=== PATIENT | female | born 1935 | race Caucasian/White ===

== ENCOUNTER 2020-08-05 10:27 | Inpatient (IN) | payer MEDICARE ==
[~2020-08-05] VITALS: Ht 165.1 cm; Wt 39.8 kg
[2020-08-05 11:11] LABS: BASOPHILS % (AUTO) 0.2 % (0.0-5.0); CREATININE 0.8 mg/dL (0.5-1.5); HEMATOCRIT 40.8 % (36-48); LYMPHOCYTES % (AUTO) 10.7 % (21.0-51.0); MEAN CORPUSCULAR HEMOGLOBIN 28.5 pg (27.0-33.0); MEAN CORPUSCULAR HGB CONC 32.8 g/dL (32.0-36.0); MEAN CORPUSCULAR VOLUME 86.8 fL (79-99); MONOCYTES % (AUTO) 12.3 % (3.0-13.0); NEUTROPHILS % (AUTO) 76.2 % (40.0-77.0); PLATELET COUNT (AUTO) 348 K/uL (130-400); RED CELL DISTRIBUTION WIDTH 13.5 % (11.0-15.5); WHITE BLOOD COUNT (AUTO) 10.2 K/uL (4.8-10.8)
[2020-08-05] MEDS ORDERED: FENTANYL CITRATE PF 50 MCG/1 ML 2ML VIAL ONE (11:17)
[2020-08-05] MEDS ORDERED: ONDANSETRON HCL 4 MG/2 ML VIAL ONE (11:17)
[2020-08-05 11:34] LABS: INR 0.92 (0.85-1.15); PARTIAL THROMBOPLASTIN TIME 26.4 SEC (26.3-35.5)
[2020-08-05] MEDS: SODIUM CHLORIDE 0.9% 1000ML 1,000 ML IV SCH (17:00)
[2020-08-05] MEDS ORDERED: ONDANSETRON HCL 4 MG/2 ML VIAL IV PRN (17:00)
[2020-08-05] MEDS ORDERED: ACETAMINOPHEN 325 MG TAB PO PRN (17:00)
[2020-08-05] MEDS ORDERED: FAMOTIDINE/PF 20 MG/2 ML VIAL IV ONE (19:52)
[2020-08-05 20:45] VITALS: BP 153/92
[2020-08-05] MEDS: FAMOTIDINE/PF 20 MG/2 ML VIAL IV SCH (21:00)
[2020-08-06] VITALS: BP 158/86
--- NOTE | 2020-08-06 00:50 | NUR ---
PT FELL HEARD PT SCREAM. FOUND PATIENT ON FLOOR. PT CONFUSED, STATING CONFUSED SENTENCES. ASSISTED PT BACK TO BED. CALLED ESTELITA CLOUD PHYSICIST COAL CUTTER. ORDERS GIVEN. WILL PLACE PT CLOSER TO NURSES STATION. 1:1 WILL BE INITIATED. BED ALARM PLACED
[2020-08-06] MEDS ORDERED: ALPRAZOLAM 0.25 MG TABLET PO PRN (01:15)
[2020-08-06] MEDS ORDERED: HYDRALAZINE HCL 20 MG/ML VIAL IV PRN (01:15)
[2020-08-06 03:33] VITALS: BP 144/89
[2020-08-06 06:04] LABS: BASOPHILS % (AUTO) 0.2 % (0.0-5.0); EOSINOPHILS % (AUTO) 0.1 % (0.0-8.0); HEMATOCRIT 40.2 % (36-48); LYMPHOCYTES % (AUTO) 13.2 % (21.0-51.0); MEAN CORPUSCULAR HEMOGLOBIN 28.5 pg (27.0-33.0); MEAN CORPUSCULAR HGB CONC 32.6 g/dL (32.0-36.0); MEAN CORPUSCULAR VOLUME 87.4 fL (79-99); MONOCYTES % (AUTO) 10.7 % (3.0-13.0); NEUTROPHILS % (AUTO) 75.3 % (40.0-77.0); PLATELET COUNT (AUTO) 360 K/uL (130-400); RED CELL DISTRIBUTION WIDTH 13.7 % (11.0-15.5); WHITE BLOOD COUNT (AUTO) 12.7 K/uL (4.8-10.8)
[2020-08-06 06:36] LABS: ALBUMIN 3.5 g/dL (3.5-5.0); BILIRUBIN,TOTAL 0.9 mg/dL (0.2-1.0); CREATININE 0.8 mg/dL (0.5-1.5); POTASSIUM 3.6 mmol/L (3.5-5.1); TOTAL PROTEIN, SERUM 7.2 g/dL (6.0-8.3)
[2020-08-06 06:55] LABS: MYOGLOBIN 553 ng/mL (10-92); TROPONIN I < 0.04 ng/mL (0.00-0.06)
[2020-08-06 06:58] LABS: CREATINE KINASE, TOTAL 725 U/L (21-232)
[2020-08-06 08:00] VITALS: BP 142/82
--- NOTE | 2020-08-06 08:10 | NUR ---
SPOKE TO PATIENT'S (SHAR VERNON) AND PROVIDER (ELIZABETH JESUS) REGARDING PATIENT S/P FALL WHILE IN ROOM 312. INFORMED THEM THAT THE PATIENT WAS MOVED TO ROOM 302 WHICH IS CLOSER TO THE NURSES STATION AND WILL HAVE A 1:1 SITTER. SPOUSE/PROVIDER VOICED UNDERSTANDING. STATED PATIENT HAS A TENDENCY TO WANT TO WALK BY HERSELF AND PATIENT IS UNSTEADY. INFORMED SPOUSE PATIENT IS AWAITING ORTHOPEDIC SURGEON TO EVALUATE LEFT FEMUR FRACTURE. WILL INFORM FAMILY WITH ANY NEW ORDERS.
[2020-08-06] MEDS ORDERED: ASPI-1197 PO (09:36)
[2020-08-06] MEDS: FAMOTIDINE/PF 20 MG/2 ML VIAL IV SCH ×2 (09:39→21:31)
--- NOTE | 2020-08-06 11:55 | NUR ---
SPOKE TO PATIENT'S DAUGHTER ( DANTE LADD ) REGARDING FALL AND STILL AWAITING ORTHOPEDIC SURGEON. WILL NOTIFY WITH ANY NEW CHANGES.
[2020-08-06 12:00] VITALS: BP 133/78
--- NOTE | 2020-08-06 14:05 | NUR ---
CALL RECEIVED FROM DR. GROVES REGARDING CONSULT AND IMAGING RESULTS OF CT SCAN AND X-RAYS. NO NEW ORDERS AT THIS TIME.
--- NOTE | 2020-08-06 15:24 | NUR ---
[place] [facility] [place] ORDER RECD FROM DR. Nasreen TONY DC PLANNING [place] [facility] [place], POSSIBLE BEDS AT THE END OF THE WEEK- THURSDAY/THURSDAY? SPOKE TO SPOUSE AND CAREGIVER ELIZABETH OVER THE PHONE- PATIENT LVIES WITH SPOUSE,HOME IS SAFE AND ACCESSIBLE, NO STAIR, SHOWER CHAIR, USES ROLLING WALKER, IS INDEPENDENT IN DRESSING AND BATHING; PICKING MACHINE OPERATOR ELIZABETH STAYS 6-7 HOURS PER DAY, DOES ALL THE DRIVING. RECOMMENDATION FOR IPRU IF DOES WELL POST SURGERY; ALL AGREED, VERBAL JOSAFAT SIGNED. WENT TO PATIENT'S BEDSIDE, PATIENT ALSO AGREED,. CALL TO DTR DANTE [phone] --- IN AGREEMENT WITH PLAN- SHE AND HER SPOUSE COMING FROM OUT OF TOWN THIS WEEK TO STAY WITH PT'S AND BE THEIR TO RECIEVE PT WHEN HOME FROM REHAB. ORDER ENTERED AND PRELIM PKT SENT Addendum: 08/06/20 at 1530 by JOSE E GUILLORY RN CM Amended: Links added.
[2020-08-06] MEDS: SODIUM CHLORIDE 0.9% 1000ML 1,000 ML IV SCH ×2 (15:34→19:40)
[2020-08-06 16:00] VITALS: BP 114/64
[2020-08-06 20:00] VITALS: BP 116/68
--- NOTE | 2020-08-06 20:40 | NUR ---
NOTE PATIENT SHOWING AGITATION AND AGGRESSIVE BEHAVIOR TOWARDS STAFF. SHE IS BEING VERBALLY AND PHYSICALLY ABUSIVE. TRIES TO SCRATCH/KICK SITTER. GOT MITTENS AND PLACED THEM ON HER HANDS. SHE HAS XANAX PO, BUT PATIENT NOT IN MENTAL DISPOSITION. CONTACTED HOSPITALIST. UPON CALLBACK, SPOKE WITH VANESSA MURPHY CUSTOM HOME INSTALLER INFORMED HER OF SITUATION. RECEIVED ORDERS FOR LORAZEPAM 0.5MG IV Q6HRS PRN AGITATION/ANXIETY.
[2020-08-06] MEDS: LORAZEPAM 2 MG/ML 1 ML VIAL IVP PRN (21:32)
--- NOTE | 2020-08-06 22:00 | NUR ---
NOTE PATIENT RESTING AND QUIET AFTER RECEIVING ATIVAN DOSE. SITTER REMAINS AT BEDSIDE.
[2020-08-07] VITALS (25 sets, daily range): BP systolic 109–160; BP diastolic 61–91
--- NOTE | 2020-08-07 02:00 | NUR ---
NOTE SITTER REPORTS PATIENT HAS BEEN BEHAVING WELL AND HAS A PLEASANT DISPOSITION.
[2020-08-07 04:29] LABS: BASOPHILS % (AUTO) 0.3 % (0.0-5.0); EOSINOPHILS % (AUTO) 0.1 % (0.0-8.0); HEMATOCRIT 42.3 % (36-48); LYMPHOCYTES % (AUTO) 9.4 % (21.0-51.0); MEAN CORPUSCULAR HEMOGLOBIN 28.8 pg (27.0-33.0); MEAN CORPUSCULAR HGB CONC 33.1 g/dL (32.0-36.0); NEUTROPHILS % (AUTO) 77.8 % (40.0-77.0); PLATELET COUNT (AUTO) 273 K/uL (130-400); RED BLOOD CELL COUNT(AUTO) 4.86 MIL/uL (4.00-5.50); RED CELL DISTRIBUTION WIDTH 13.8 % (11.0-15.5); WHITE BLOOD COUNT (AUTO) 12.6 K/uL (4.8-10.8)
[2020-08-07 04:56] LABS: ALBUMIN 3.3 g/dL (3.5-5.0); BILIRUBIN,TOTAL 0.8 mg/dL (0.2-1.0); CREATININE 0.8 mg/dL (0.5-1.5); POTASSIUM 3.6 mmol/L (3.5-5.1); TOTAL PROTEIN, SERUM 7.1 g/dL (6.0-8.3)
[2020-08-07] MEDS: MORPHINE SULFATE 2 MG/ML 1ML SYG IV PRN (05:19)
[2020-08-07] MEDS: SODIUM CHLORIDE 0.9% 1000ML 1,000 ML IV SCH ×2 (09:00→22:20)
[2020-08-07] MEDS: FAMOTIDINE/PF 20 MG/2 ML VIAL IV SCH ×2 (09:17→22:42)
[2020-08-07] MEDS ORDERED: CEFAZOLIN SODIUM 1 GM VIAL ONE ×2 (11:16→12:08)
[2020-08-07] MEDS ORDERED: HETASTARCH IN 0.9 % NACL 500 ML IV ONE (11:55)
[2020-08-07] MEDS ORDERED: GLYCOPYRROLATE 1 MG/5 ML SYRINGE ONE (11:55)
[2020-08-07] MEDS ORDERED: LIDOCAINE PF 2% 5ML ABBOJECT ONE (11:55)
[2020-08-07] MEDS ORDERED: DEXAMETHASONE SOD PHOSPHATE 10MG/ML 1ML VIAL ONE (11:55)
[2020-08-07] MEDS ORDERED: PROPOFOL 10 MG/ML 20ML VIAL IV ONE (11:55)
[2020-08-07] MEDS ORDERED: ALBUMIN (HUMAN) 25% 150 ML IV ONE (11:55)
[2020-08-07] MEDS ORDERED: NEOSTIGMINE 5MG/5ML SYR IV ONE (11:56)
[2020-08-07] MEDS ORDERED: FENTANYL CITRATE PF 50 MCG/1 ML 2ML VIAL ONE (11:56)
[2020-08-07] MEDS ORDERED: ROCURONIUM 10MG/1ML SYR 10 MG/ML ML ONE (11:56)
[2020-08-07] MEDS ORDERED: ONDANSETRON HCL 4 MG/2 ML VIAL ONE (11:56)
--- NOTE | 2020-08-07 13:04 | NUR ---
RD NOTIFICATION PT admitted due to left side femoral neck fracture. Pt is currently NPO, pt was previously on a heart healthy diet and consuming 75% as per LEAK OPERATOR PARAFFIN PLANT. Pt's BMI is of 14.6 (low for age). Upon nutrition focused physical assessment pt has moderate-severe protein calorie malnutrition. RD recommendation is when medically appropriate to advance diet consider heart healthy with ensure TID. Labs: WBC 12.6, BG 114, AST 47, TOT CREAT KINASE 706, MYOGLOBIN 533, ALB 3.3. LAST BM: 08/05/20 Blood Pressure: 150/85 Addendum: 08/07/20 at [address] Amended: Links added.
[2020-08-07] MEDS ORDERED: PHENYLEPHRINE HCL 10 MG/ML 1ML VIAL IV ONE (13:12)
[2020-08-07] MEDS ORDERED: KETOROLAC TROMETHAMINE 30MG/ML ONE (13:50)
[2020-08-07] MEDS ORDERED: SUGAMMADEX SODIUM 200 MG/2 ML VIAL IV ONE (14:19)
--- NOTE | 2020-08-07 15:15 | NUR ---
PROCEDURE REPORT RECEIVED FROM DANILO LEIVA (PACU). PATIENT S/P LEFT HIP HEMIARTHROPLASTY BY DR. MAYNARD UNDER GENERAL ANESTHESIA. 16FR CHRISTIANSEN IN PLACE. DRESSING DRY AND INTACT. PATIENT STABLE AT THIS TIME.
[2020-08-07 18:56] LABS: APPEARANCE,URINE Clear (CLEAR); BILIRUBIN,URINE Negative (NEGATIVE); COLOR,URINE Yellow (YELLOW); GLUCOSE, URINE (UA) Negative (NEGATIVE); KETONES,URINE 15 mg/dL (NEGATIVE); LEUKOCYTE ESTERASE ,URINE Negative (NEGATIVE); NITRATE,URINE Negative (NEGATIVE); OCCULT BLOOD,URINE Small (NEGATIVE); PH,URINE 6.5 (5.0-8.0); PROTEIN,URINE Negative (NEGATIVE)
[2020-08-07 19:05] LABS: BACTERIA,URINE Few /HPF (None Seen); WBC,URINE 0-1 /HPF (0-1)
[2020-08-07 19:06] LABS: SQUAMOUS EPITHELIAL CELL,UR Rare /HPF (0-2)
[2020-08-07] MEDS: CEFTRIAXONE SODIUM 1 GM IVP SCH (22:42)
[2020-08-08 03:23] VITALS: BP 119/60
[2020-08-08 06:41] LABS: BASOPHILS % (AUTO) 0.2 % (0.0-5.0); EOSINOPHILS % (AUTO) 1.1 % (0.0-8.0); LYMPHOCYTES % (AUTO) 8.6 % (21.0-51.0); MEAN CORPUSCULAR HEMOGLOBIN 28.8 pg (27.0-33.0); MEAN CORPUSCULAR VOLUME 90.1 fL (79-99); MONOCYTES % (AUTO) 8.1 % (3.0-13.0); NEUTROPHILS % (AUTO) 81.5 % (40.0-77.0); PLATELET COUNT (AUTO) 292 K/uL (130-400); RED BLOOD CELL COUNT(AUTO) 3.33 MIL/uL (4.00-5.50); WHITE BLOOD COUNT (AUTO) 11.3 K/uL (4.8-10.8)
[2020-08-08 06:57] LABS: ALBUMIN 2.5 g/dL (3.5-5.0); BILIRUBIN,TOTAL 0.7 mg/dL (0.2-1.0); CREATININE 0.6 mg/dL (0.5-1.5); POTASSIUM 3.5 mmol/L (3.5-5.1)
[2020-08-08 07:30] VITALS: BP 106/59
[2020-08-08] MEDS: FAMOTIDINE/PF 20 MG/2 ML VIAL IV SCH ×2 (08:51→21:49)
[2020-08-08] MEDS: APIXABAN 2.5 MG TABLET PO SCH ×2 (08:51→21:49)
[2020-08-08 11:00] VITALS: BP 105/54
--- NOTE | 2020-08-08 14:00 | NUR ---
Patient was tested for Covid today. A Covid PCR and Rapid was done on the patient and returned to lab for further analyzing. Lab called and notified me that her rapid covid came back Presumptive negative. Patient understood the reason for the test and tolerated it well.
[2020-08-08 16:00] VITALS: BP 95/60
[2020-08-08] MEDS: LORAZEPAM 2 MG/ML 1 ML VIAL IVP PRN (17:34)
--- NOTE | 2020-08-08 20:00 | NUR ---
PATIENT RECEIVED IN BED, ALERT TO SELF ONLY. S/P LEFT HIP HEMIARTHROPLASTY 08/07/2020. DRESSING NOTED TO BE CLEAN AND DRY. PATIENT REMAINS WITH 2:1 SUPERVISION D/T CONFUSION AND HIGH RISK FOR FALLS/INJURY. WILL CONT TO MONITOR CLOSELY. AT THIS TIME, PT IS CALM, RR EVEN AND NON-LABORED.
[2020-08-08 20:10] VITALS: BP 118/66
[2020-08-08] MEDS: CEFTRIAXONE SODIUM 1 GM IVP SCH (21:49)
[2020-08-08 23:34] VITALS: BP 131/71
[2020-08-09] MEDS: LORAZEPAM 2 MG/ML 1 ML VIAL IVP PRN (01:31)
--- NOTE | 2020-08-09 01:38 | NUR ---
PATIENT YELLING OUT, TRYING TO GET OUT BED, VERY ANXIOUS. PRN ATIVAN ADMINISTERED FOR PATIENT SAFETY. WILL CONT TO MONITOR CLOSELY.
[2020-08-09 03:52] VITALS: BP 149/84
[2020-08-09] MEDS: SODIUM CHLORIDE 0.9% 1000ML 1,000 ML IV SCH ×2 (04:06→14:20)
--- NOTE | 2020-08-09 04:40 | NUR ---
PATIENT CONTINUES TO CRY OUT "SOMEONE HELP ME", SHE IS VERY AGITATED. SHE VOICED TO ME THAT SHE FEELS NERVOUS. PRN XANAX PO ADMINISTERED TO ANXIETY. WARM PACKS APPLIED TO NECK AREA, SHE STATES HER NECK ACHES. WILL CONT TO MONITOR CLOSELY.
[2020-08-09 05:51] LABS: BASOPHILS % (AUTO) 0.1 % (0.0-5.0); HEMATOCRIT 26.9 % (36-48); LYMPHOCYTES % (AUTO) 8.3 % (21.0-51.0); MEAN CORPUSCULAR HEMOGLOBIN 28.9 pg (27.0-33.0); MEAN CORPUSCULAR HGB CONC 32.7 g/dL (32.0-36.0); MEAN CORPUSCULAR VOLUME 88.2 fL (79-99); MONOCYTES % (AUTO) 9.8 % (3.0-13.0); NEUTROPHILS % (AUTO) 81.1 % (40.0-77.0); NUCLEATED RED BLOOD CELLS 0.1 % (0.0-0.19); PLATELET COUNT (AUTO) 361 K/uL (130-400); RED BLOOD CELL COUNT(AUTO) 3.05 MIL/uL (4.00-5.50); RED CELL DISTRIBUTION WIDTH 14.2 % (11.0-15.5); WHITE BLOOD COUNT (AUTO) 13.4 K/uL (4.8-10.8)
[2020-08-09 06:18] LABS: ALBUMIN 2.7 g/dL (3.5-5.0); BILIRUBIN,TOTAL 0.8 mg/dL (0.2-1.0); CREATININE 0.9 mg/dL (0.5-1.5); TOTAL PROTEIN, SERUM 5.6 g/dL (6.0-8.3)
[2020-08-09 06:20] LABS: POTASSIUM 2.9 mmol/L (3.5-5.1)
--- NOTE | 2020-08-09 06:22 | NUR ---
CRITICAL K LEVEL OF 2.9. PAGED DR. TILLEY TO OBTAIN ORDERS FOR REPLACEMENT. WILL AWAIT CALL BACK.
[2020-08-09] MEDS ORDERED: POTASSIUM CHLORIDE 20 MEQ ERTAB PO PRN (07:00)
[2020-08-09] MEDS ORDERED: ZIPRASIDONE MESYLATE 20 MG/VIAL IM SCH (07:00)
[2020-08-09 07:30] VITALS: BP 153/87
[2020-08-09] MEDS: POTASSIUM CHLORIDE 20MEQ/100ML 100 ML IV PRN ×3 (09:02→21:22)
[2020-08-09] MEDS: APIXABAN 2.5 MG TABLET PO SCH ×2 (09:02→21:06)
[2020-08-09] MEDS: FAMOTIDINE/PF 20 MG/2 ML VIAL IV SCH ×2 (09:02→21:06)
[2020-08-09] MEDS: LIDOCAINE HCL-MPF 1% 2ML VIAL IV PRN ×3 (09:07→21:22)
--- NOTE | 2020-08-09 10:50 | NUR ---
CM Note: [facility] approval CM spoke to Katherine hair/[facility], pt has approval, received covid result, covid transfer form, and updated progress notes. MOT filled out, pending MD and eveline super to sign. EMS arranged for today, primary nurse to call [facility] once pt ready to DC. Primary nurse Edward RN aware. CM to continue to follow up.
[2020-08-09 11:14] VITALS: BP 150/76
[2020-08-09] MEDS: MAGNESIUM 2GM PREMIX 50ML 50 ML IV PRN (13:04)
--- NOTE | 2020-08-09 16:15 | NUR ---
Ms. Toney was very confused and becoming combative with the nurse's and techs. She was administered a 1 time dose of Geodon IM (0.5 ml). Once the injection was given, the patient became more relaxed 30 minutes after the injection and tolerated it well. Patient was also given IV potassium X2 and 1 tab of by mouth potassium.
[2020-08-09 16:38] VITALS: BP 151/90
[2020-08-09 19:30] VITALS: BP 138/73
--- NOTE | 2020-08-09 19:30 | NUR ---
PATIENT RECEIVED IN BED, ALERT ONLY TO SELF. CONTINUES WITH 2:1 SITTER. PATIENT HAS SPORADIC MOMENTS OF SCREAMING TO BE LEFT ALONE, SHE CONTINUES TO ATTEMPT TO GET OUT BED AND TRIES TO STRIKE AT PCP/NURSES WHEN WORKING WITH HER. DRESSING TO LEFT HIP IS D/I. SIDE RAILS ARE PADDED WITH SEIZURE PADS D/T PATIENT KEEPS SWINGING HER LEGS OVER THE RAILS WITH ATTEMPTS TO GET OUT OF BED. WILL CONT TO MONITOR CLOSELY.
[2020-08-09] MEDS: POTASSIUM CHLORIDE 10% ELIXIR 20 MEQ/15 ML UDCUP PO PRN (21:05)
[2020-08-09] MEDS: CEFTRIAXONE SODIUM 1 GM IVP SCH (21:06)
--- NOTE | 2020-08-09 21:18 | NUR ---
SKIN TEAR TO RIGHT CALF WHILE ATTEMPTING TO PLACE SCDs. REFER TO WOUND PHOTO. SKIN PLACED BACK, COVERED WITH VASELINE GAUZE, 4X4 AND WRAPPED WITH KERLIX AND SECURED WIT TAPE. WILL CONT TO MONITOR CLOSELY.
[2020-08-09 23:57] VITALS: BP 146/86
[2020-08-10] MEDS: MORPHINE SULFATE 2 MG/ML 1ML SYG IV PRN (02:55)
--- NOTE | 2020-08-10 02:58 | NUR ---
PATIENT CRIES OUT IN PAIN WHEN TURNED AND CHANGED. MORPHINE 1 MG IVP ADMINISTERED PER PRN ORDERS. WILL CONT TO MONITOR.
[2020-08-10 03:01] VITALS: BP 136/74
[2020-08-10] MEDS: SODIUM CHLORIDE 0.9% 1000ML 1,000 ML IV SCH ×2 (03:40→12:32)
[2020-08-10 05:32] LABS: BASOPHILS % (AUTO) 0.1 % (0.0-5.0); EOSINOPHILS % (AUTO) 1.7 % (0.0-8.0); HEMATOCRIT 27.5 % (36-48); MEAN CORPUSCULAR HEMOGLOBIN 28.5 pg (27.0-33.0); MEAN CORPUSCULAR HGB CONC 33.1 g/dL (32.0-36.0); MEAN CORPUSCULAR VOLUME 86.2 fL (79-99); MONOCYTES % (AUTO) 8.3 % (3.0-13.0); NEUTROPHILS % (AUTO) 81.7 % (40.0-77.0); PLATELET COUNT (AUTO) 351 K/uL (130-400); RED BLOOD CELL COUNT(AUTO) 3.19 MIL/uL (4.00-5.50); RED CELL DISTRIBUTION WIDTH 14.2 % (11.0-15.5); WHITE BLOOD COUNT (AUTO) 13.9 K/uL (4.8-10.8)
[2020-08-10 05:50] LABS: CREATININE 0.5 mg/dL (0.5-1.5)
[2020-08-10] MEDS: LIDOCAINE HCL-MPF 1% 2ML VIAL IV PRN ×2 (05:54→12:32)
[2020-08-10] MEDS: POTASSIUM CHLORIDE 20MEQ/100ML 100 ML IV PRN ×2 (05:59→12:32)
[2020-08-10] MEDS: FAMOTIDINE/PF 20 MG/2 ML VIAL IV SCH ×2 (08:29→20:31)
[2020-08-10] MEDS: APIXABAN 2.5 MG TABLET PO SCH ×2 (08:30→20:31)
[2020-08-10] MEDS: POTASSIUM CHLORIDE 10% ELIXIR 20 MEQ/15 ML UDCUP PO PRN ×2 (08:31→12:41)
[2020-08-10] MEDS: ACETAMINOPHEN 325 MG TAB PO PRN (08:31)
--- NOTE | 2020-08-10 09:29 | NUR ---
DYSPHAGIA EVAL COMPLETED. +S/S OF ASPIRATION WITH THIN LIQUIDS. RECOMMEND PUREED, NECTAR-THICK LIQUIDS; PILLS CRUSHED WITH APPLESAUCE. RECOMMENDATIONS: 1. SKILLED SPEECH THERAPY 1-5XWK FOR 2 WEEKS LTG1: Pt WILL TOLERATE LEAST RESTRICTIVE DIET WITH NO OVERT S/S OF ASPIRATION. STG1: Pt WILL COMPLETE ORAL MOTOR EXERCISES WITH 80% ACCURACY. STG2: Pt WILL COMPLETE LARYNGEAL ELEVATION/EXCURSION EXERCISES WITH 80% ACCURACY. STG3: Pt WILL COMPLETE PHARYNGEAL STRENGTHENING EXERCISES WITH 80% ACCURACY. STG4: Pt WILL TOLERATE PUREED, NECTAR-THICK LIQUIDS WITH NO OVERT S/S OF ASPIRATION. STG5: Pt WILL TOLERATE THERAPEUTIC TRIALS OF ADVANCED TEXTURES OF THIN, MECHANICAL SOFT TRIALS WITH NO OVERT S/S OF ASPIRATION. STG6: SKILLED EDUCATION Pt/FAMILY/STAFF. PICKING TECH COORDINATED WITH NURSE ELIZABETH. SHE VERBALIZED AGREEMENT AND COMPLIANCE WITH RECOMMENDATIONS. Addendum: 08/10/20 at 0933 by JAMIE [facility] Amended: Links added.
--- NOTE | 2020-08-10 11:05 | NUR ---
RD FOLLOW UP Pt was resting well today. Talked to DEBRIDGING MACHINE OPERATOR about pt's po intake, pt ate about 25% of breakfast. Speech Evaluation in the AM; as per Speech, pt will be placed on a regular puree diet with nectar tick liquids. In order to increase PO intake RD recommends Ensure TID chilled which provides nectar thick consistency. As per DEBRIDGING MACHINE OPERATOR pt needs assistance when eating. Pt might benefit from stool softener, as per DEBRIDGING MACHINE OPERATOR last bowel movement was 08/06/20 or 08/07/20 when DEBRIDGING MACHINE OPERATOR was previously with pt, unknown of recent bowel movements. Continue current diet order and monitor PO tolerance and PO intake. RD will continue to monitor. LABS: Alb 2.7, tot protein 5.6, K 3.0, wbc 13.9, rbc 3.19, hct 9.1, mcv 27.5 Addendum: 08/10/20 at [address]Z RD Amended: Links added.
--- NOTE | 2020-08-10 12:00 | NUR ---
wound care dr carrillo here to see patient and exam skin tear on right calf, it was measured to be approx. 7cm by 3cm and the skin was re-aproximated covering the sheered off area; he recomended xeroform gauze on skin then non adherant gauze and kerlix wrap; i applied vaseline gauze b/c that was what was on hand and he stated that would be ok; pt laila. proc. well.
[2020-08-10 19:00] VITALS: BP 154/84
[2020-08-10] MEDS: CEFTRIAXONE SODIUM 1 GM IVP SCH (20:31)
[2020-08-10 23:54] VITALS: BP 156/89
[2020-08-11 03:47] VITALS: BP 142/69
[2020-08-11] MEDS: SODIUM CHLORIDE 0.9% 1000ML 1,000 ML IV SCH (05:33)
[2020-08-11 06:35] LABS: BASOPHILS % (AUTO) 0.2 % (0.0-5.0); EOSINOPHILS % (AUTO) 0.8 % (0.0-8.0); HEMATOCRIT 30.3 % (36-48); LYMPHOCYTES % (AUTO) 9.6 % (21.0-51.0); MEAN CORPUSCULAR HEMOGLOBIN 28.9 pg (27.0-33.0); MEAN CORPUSCULAR HGB CONC 33.7 g/dL (32.0-36.0); MEAN CORPUSCULAR VOLUME 85.8 fL (79-99); MONOCYTES % (AUTO) 8.9 % (3.0-13.0); NEUTROPHILS % (AUTO) 79.6 % (40.0-77.0); PLATELET COUNT (AUTO) 414 K/uL (130-400); RED BLOOD CELL COUNT(AUTO) 3.53 MIL/uL (4.00-5.50); RED CELL DISTRIBUTION WIDTH 14.3 % (11.0-15.5); WHITE BLOOD COUNT (AUTO) 14.2 K/uL (4.8-10.8)
[2020-08-11 06:43] LABS: CREATININE 0.5 mg/dL (0.5-1.5); POTASSIUM 3.1 mmol/L (3.5-5.1)
[2020-08-11 08:00] VITALS: BP 137/81
[2020-08-11] MEDS ORDERED: LACTULOSE 20 GM/30 ML UDCUP PO PRN ×2 (10:00→11:00)
[2020-08-11] MEDS: APIXABAN 2.5 MG TABLET PO SCH (10:22)
[2020-08-11] MEDS: FAMOTIDINE/PF 20 MG/2 ML VIAL IV SCH (10:23)
[2020-08-11] MEDS: ACETAMINOPHEN 325 MG TAB PO PRN (10:23)
[2020-08-11] MEDS: LIDOCAINE HCL-MPF 1% 2ML VIAL IV PRN (10:25)
[2020-08-11] MEDS: POTASSIUM CHLORIDE 20MEQ/100ML 100 ML IV PRN (10:26)
[2020-08-11 12:00] VITALS: BP 133/82
--- NOTE | 2020-08-11 12:00 | NUR ---
dressing to left hip inc. line changed because pt is picking at it trying to remove it; she has a well approx. inc. line with heavy sutures in place, mod. generalized edema and bruising, no drainage. clean dry gauze dressing applied and medipore tape; i have also changed the dressing to pt's right calf skin tear and applied vaseline gauze and non adherant pads then wrapped it with kerlix. The skin is approx. over skin tear area and has no bleeding, the generalized area has a large amount of bruising; pt laila. both dressing changes well.
[2020-08-11 15:00] LABS: MAGNESIUM 1.7 mg/dL (1.80-2.40); POTASSIUM 3.6 mmol/L (3.5-5.1)
[2020-08-11 16:00] VITALS: BP 154/88
[2020-08-11] MEDS: MAGNESIUM 2GM PREMIX 50ML 50 ML IV PRN (16:22)
--- NOTE | 2020-08-11 19:30 | NUR ---
d/c report called and faxed to nima hoffman at [facility]; ems called to orange picker machine operator patient. i am leaving iv in place for rehab to use.
--- NOTE | 2020-08-11 19:45 | NUR ---
while giving report to iru pt's bed alarm went off by the time we got into pt's room she had her legs out of bed and her knees on the floor hanging onto side rails with her arms. pt is stating she is getting out of bed because she is leaving to go home; we assisted pt back into bed and reiterated that she needed to use call light and not get out of bed alone and that her family is sending her to rehab for further physical therapy to improve her ambulation so that she is safe to go home. pt is still argumentative about going to rehab instead of home. I have called dr Painter the primary medical md and she stated to hold d/c if pt's daughter wishes to keep her and plan on her going home instead or if pt's daughter Delma agreeable cont. with transfer to IRU. i called pt's daughter Delma and she stated pt can not go home that she is to high risk to have at home that they could not handle her and cont. with transfering her to IRU. i called and spoke to charge nurse at IRU unit and explained to them that pt is high risk for fall and would need to be by the nurses station and she put me on hold and made a phone call then came back on the phone and stated they would still take patient tonight.
== END 2020-08-11 21:04 | DRG 521 ==
LOC: EDH 10:27 → EDHIP 16:48 → 3BH 21:08 → 3AH 08-06 01:15
PROVIDERS: ADMIT Hospitalist; ATTEND Hospitalist
PROC: 0SRS0JZ Replacement of Left Hip Joint, Femoral Surface with Synthetic Substitute, Open Approach (ICD-10-PCS; principal; 2020-08-07 13:18)
DX: S72.012A Unspecified intracapsular fracture of left femur, initial encounter for closed fracture (principal); E43 Unspecified severe protein-calorie malnutrition; Z68.1 Body mass index [BMI] 19.9 or less, adult; M62.82 Rhabdomyolysis; I10 Essential (primary) hypertension; Z20.828 Contact with and (suspected) exposure to other viral communicable diseases; F41.9 Anxiety disorder, unspecified; D72.829 Elevated white blood cell count, unspecified; E87.6 Hypokalemia; W18.30XA Fall on same level, unspecified, initial encounter; Y93.89 Activity, other specified; Y99.8 Other external cause status; Y92.009 Unspecified place in unspecified non-institutional (private) residence as the place of occurrence of the external cause
CPT/HCPCS: 36415; 70450; 71045; 72125; 72170; 72190; 72192; 73503; 73521; 80048; 80053; 81001; 82550; 83735; 83874; 84132; 84484; 85025; 85610; 85730; 87088; 87426; 92610; 93005; 97039; A4344; C1776; G0378; J0690; J0696; J1100; J1885; J2001; J2060; J2370; J2405; J2704; J2710; J3010; J3475; J3480; J3486; J3490; J7030; J7040; P9047; U0003